=== PATIENT | male | born 1940 | race Caucasian/White ===

== ENCOUNTER 2016-09-13 05:22 | Day surgery (SDC) | payer OTHER ==
[~2016-09-13] VITALS: Ht 171.4 cm; Wt 90.7 kg
[~2016-09-13 05:22] MED LIST: AMLODIPINE BESYL5 MG PO; CHILD ASPIRIN81 M1 PO; COZAAR100 MG PO; IMDUR60 MG PO; ISOSORBIDE MONO30 MG PO; LOSARTAN POTASS50 MG PO; METOPROLOL SUCC50 MG PO; MOTRIN400 MG PO; NITROSTAT0.4 MG SL; PLAVIX75 MG PO; PRAVACHOL40 MG PO; PRAVASTATIN SOD10 MG PO; PROCARDIA XL30 MG PO; TOPROL XL50 MG PO; ZANTAC150 MG PO
[2016-09-13 06:16] VITALS: BP 140/70
[2016-09-13 09:20] VITALS: BP 118/51
[2016-09-13 09:46] VITALS: BP 109/61
== END 2016-09-13 09:54 | disposition home or self-care (01) ==
LOC: SDC 05:22
PROC: 0JB00ZZ Excision of Scalp Subcutaneous Tissue and Fascia, Open Approach (ICD-10-PCS; principal; 2016-09-13)
DX: D17.0 Benign lipomatous neoplasm of skin and subcutaneous tissue of head, face and neck (principal); E78.01 Familial hypercholesterolemia; F17.200 Nicotine dependence, unspecified, uncomplicated; R73.03 Prediabetes; I25.10 Atherosclerotic heart disease of native coronary artery without angina pectoris; Z95.5 Presence of coronary angioplasty implant and graft; Z79.82 Long term (current) use of aspirin; Z82.49 Family history of ischemic heart disease and other diseases of the circulatory system; Z82.3 Family history of stroke; Z82.0 Family history of epilepsy and other diseases of the nervous system
CPT/HCPCS: 88304; J0131; J0690; J2250; J3010